=== PATIENT | female | born 1980 | race Caucasian/White ===

== ENCOUNTER 2019-01-10 17:16 | Emergency (ER) | payer BC, OTHER ==
[~2019-01-10] VITALS: Ht 165.1 cm; Wt 99.8 kg
[2019-01-10 17:37] VITALS: BP_SYST 163
[2019-01-10] MEDS ORDERED: KETOROLAC TROMETHAMINE 60 MG/2 ML VIAL IM ONE (19:45)
[2019-01-10] MEDS ORDERED: DEXAMETHASONE SOD PHOSPHATE 10 MG/ML VIAL IM ONE (19:45)
[2019-01-10 20:15] VITALS: BP_SYST 145
== END 2019-01-10 18:25 | disposition home or self-care (01) ==
LOC: SED 17:16
DX: M54.2 Cervicalgia (principal); R03.0 Elevated blood-pressure reading, without diagnosis of hypertension; Z90.49 Acquired absence of other specified parts of digestive tract
CPT/HCPCS: 72125; 96372; 99284; J1100; J1885

== ENCOUNTER 2019-02-02 17:39 | Emergency (ER) | payer BC ==
[~2019-02-02] VITALS: Ht 165.1 cm; Wt 99.8 kg
[2019-02-02 17:46] VITALS: BP_SYST 145
[2019-02-02] MEDS ORDERED: KETOROLAC TROMETHAMINE 60 MG/2 ML VIAL IM ONE (18:00)
[2019-02-02 18:40] VITALS: BP_SYST 142
== END 2019-02-02 18:40 | disposition home or self-care (01) ==
LOC: SED 17:39
DX: S16.1XXA Strain of muscle, fascia and tendon at neck level, initial encounter (principal); R03.0 Elevated blood-pressure reading, without diagnosis of hypertension; Z90.49 Acquired absence of other specified parts of digestive tract; W19.XXXA Unspecified fall, initial encounter; Y93.89 Activity, other specified; Y92.89 Other specified places as the place of occurrence of the external cause; Y99.8 Other external cause status
CPT/HCPCS: 96372; 99283; J1885